=== PATIENT | female | born 1950 | race Caucasian/White ===

== ENCOUNTER 2020-12-11 12:14 | Observation (INO) | payer OTHER, MEDICAID, SELFPAY ==
[~2020-12-11] VITALS: Ht 160 cm; Wt 97.1 kg
[2020-12-11 12:14] VITALS: BP 128/62
[~2020-12-11 12:14] MED LIST: ACET-9528 PO; ACET-9536 PO; ALBU-118 IH; AMIO200T PO; ATI.5 PO; DIGO0.122 PO; DILT-135 PO; DOXE50CA10 PO; DULO60EC PO; HYDR-1096 PO; LOSA100T51 PO; Metoprolol Tartrate PO; RIVA20TA PO; TEMA30CA23 PO
--- NOTE | 2020-12-11 12:14 | NUR ---
PATIENT TRANSPORTED TO BED 3 VIA GURNEY.
--- NOTE | 2020-12-11 12:15 | NUR ---
70 YO FEMALE BIBA FROM HOME C/O SOB, HEADACHE, LIGHT HEADED, AND GENERAL WEAKNESS THAT STARTED THIS AM. PER MEDICS; O2 WAS 96% ON ROOM AIR UPON ARRIVAL, THEN PATIENT DESATED TO 90%, PLACED ON O2 2L/NC BY MEDICS. PATIENT STATES SOB IS WITH TALKING AND EXERTION. UPON ARRIVAL PATIENT DENIES SOB, O2 TAKEN OFF AND PATIENT O2 SAT 94%. LUNG SOUNDS CLEAR THROUGHOUT, DENIES COUGH, DENIES, FEVER, CHILLS, NVD. PATIENT HAS EDEMA TO MELISSA LOWER EXT/+1, NON PITTING. SKIN IS DRY AND INTACT. PATIENT C/O 8/10 HIP PAIN, STATES CHRONIC PAIN. PATIENT IS AOX4, PLACED IN GOWN AND CONNECTED TO MONITOR FOR CONTINUED OBSERVATION. PMH: COPD, HTN, DIASTOLIC HEART FAILURE, AFIBB, PTSD, MAJOR DEPRESSIVE D/O, HEART ATTACH AND STROKE IN 2012. ALLERGIES: AMOXICILLIN, LATEX, AMIODORONE, LEVAQUIN, ENALIPRIL, ALTACE.
--- NOTE | 2020-12-11 12:25 | NUR ---
DR LUCIANO AT BEDSIDE EVALUATING PT
--- NOTE | 2020-12-11 12:38 | NUR ---
EKD DONE AT BEDSIDE BY EMT.
--- NOTE | 2020-12-11 12:41 | NUR ---
UPHOLSTERY DEPARTMENT SUPERVISOR AT BEDSIDE COLLECTING BLOOD SAMPLES.
--- NOTE | 2020-12-11 12:42 | NUR ---
TYREE SAMPLE COLLECTED AND GIVEN TO CHILD CARE ATTENDANT.
[2020-12-11 12:50] LABS: BASOPHILS % (AUTO) 0.5 % (0.0-2.0); EOSINOPHILS # (AUTO) 0.1 K/uL (0-0.4); EOSINOPHILS % (AUTO) 1.9 % (0.0-4.0); HEMATOCRIT 36.2 % (36-48); HEMOGLOBIN 12.1 g/dL (12.0-16.0); LYMPHOCYTES # (AUTO) 1.2 K/uL (2.5-16.5); LYMPHOCYTES % (AUTO) 17.9 % (20.5-51.1); MEAN CORPUSCULAR HEMOGLOBIN 32 pg (27-31); MEAN CORPUSCULAR HGB CONC 33 g/dL (33-37); MEAN CORPUSCULAR VOLUME 95.7 fL (80-94); MONOCYTES # (AUTO) 0.6 K/uL (0.8-1.0); MONOCYTES % (AUTO) 8.3 % (1.7-9.3); NEUTROPHILS # (AUTO) 4.8 K/uL (1.8-7.7); NEUTROPHILS % (AUTO) 71.4 % (42.2-75.2); PLATELET COUNT (AUTO) 256 K/uL (140-450); RED BLOOD CELL COUNT(AUTO) 3.78 MIL/uL (4.20-5.40); RED CELL DISTRIBUTION WIDTH 14.4 % (11.6-13.7); WHITE BLOOD COUNT (AUTO) 6.8 K/uL (4.8-10.8)
[2020-12-11 13:04] LABS: ALBUMIN 3.6 g/dL (3.4-5.0); ANION GAP 10.6 (8-16); CARBON DIOXIDE 29.6 mmol/L (21-32); CREATININE 1.1 mg/dL (0.6-1.3); POTASSIUM 5.2 mmol/L (3.5-5.1); TOTAL BILIRUBIN 0.3 mg/dL (0.0-1.0)
[2020-12-11] MEDS ORDERED: ALBUTEROL 0.083% 2.5 MG/3 ML NEBU INH ONE (13:25)
--- NOTE | 2020-12-11 13:33 | NUR ---
RT AT BEDSIDE FOR BREATHING TREATMENT
--- NOTE | 2020-12-11 13:33 | NUR ---
Emely gambino in [facility] - 12/11/20 at 1333 by [email or web address] RAD AT BEDSIDE
--- NOTE | 2020-12-11 13:50 | NUR ---
PATIENT AMBULATED TO BATHROOM WITH WALKER ASSIST AND STAFF.
--- NOTE | 2020-12-11 14:00 | NUR ---
URINE SAMPLE COLLECTED AND WALKED TO LAB.
--- NOTE | 2020-12-11 14:15 | NUR ---
CONSENT SIGNED AND IV ESTABLISHED FOR CT ANGIO OF THE CHEST.
[2020-12-11 14:28] LABS: APPEARANCE,URINE CLEAR (CLEAR); BILIRUBIN,URINE NEGATIVE (NEGATIVE); BLOOD, URINE NEGATIVE (NEGATIVE); COLOR,URINE YELLOW (YELLOW); LEUKOCYTE ESTERASE ,URINE TRACE (NEGATIVE); NITRITE, URINE NEGATIVE (NEGATIVE); UGLUCOSE NEGATIVE (NEGATIVE)
--- NOTE | 2020-12-11 14:45 | NUR ---
PATIENT RETURNED FROM CT VIA [facility].
--- NOTE | 2020-12-11 15:59 | NUR ---
PATIENT RESTING IN BED, VSS.
[2020-12-11] MEDS ORDERED: PRED50TA3 PO (16:10)
[2020-12-11] MEDS ORDERED: ALBUTEROL HFA MDI 90 MCG/ACTUATION 8 GM INH ONE (16:55)
[2020-12-11] MEDS ORDERED: HYDROCORTISONE NA SUCC 100 MG/2 ML VIAL IV ONE (16:55)
[2020-12-11] MEDS ORDERED: IPRATROPIUM 0.02% 0.5 MG/2.5 ML NEBU INH ONE (16:55)
--- NOTE | 2020-12-11 17:11 | NUR ---
PATIENT AMBULATED TO BATHROOM WITH WALKER, STAFF ASSIST.
--- NOTE | 2020-12-11 18:24 | NUR ---
MEALTRAY GIVEN TO PATIENT AT THIS TIME.
[2020-12-11] MEDS ORDERED: SPIR25TA20 PO (19:05)
[2020-12-11] MEDS ORDERED: GABA800T6 PO (19:07)
[2020-12-11] MEDS ORDERED: HYDROcodone/APAP 10/325 MG 1 TAB TAB PO ONE (19:10)
--- NOTE | 2020-12-11 19:24 | NUR ---
REPORT AND CONTINUATION OF CARE GIVEN TO ROSAMARIA RUTHERFORD.
--- NOTE | 2020-12-11 19:25 | NUR ---
RECIVED REPORT FROM JOSEPH RN, TRANSFER OF CARE. PATIENT ON DRY JANITOR. VSS, PATIENT CURRENTLY DENIES SOB. PATIENT ON RA AT THIS TIME. PATIENT NOTED WITH EVEN AND UNLABORED RESPIRATIONS. DENIES CP AT THIS TIME. WALKER AT BEDSIDE.
[2020-12-11] MEDS ORDERED: ACETAMINOPHEN 325 MG TAB PO PRN (20:20)
[2020-12-11] MEDS ORDERED: ZOLPIDEM 5 MG TAB PO PRN (20:20)
[2020-12-11] MEDS ORDERED: POTASSIUM CHLORIDE 10 MEQ TABER PO PRN (20:20)
[2020-12-11] MEDS ORDERED: KCL 20 MEQ/WATER INJ PREMIX 200 ML IV PRN (20:20)
[2020-12-11] MEDS ORDERED: ALBUTEROL SULFATE/IPRATROPIU 3 ML SOL IH PRN (20:20)
[2020-12-11] MEDS ORDERED: MAGNESIUM OXIDE 400 MG TAB PO PRN (20:20)
[2020-12-11] MEDS ORDERED: MAG SULF 2000 MG/WATER PREMIX 50 ML IV PRN (20:20)
[2020-12-11] MEDS ORDERED: ONDANSETRON 4 MG/2 ML VIAL IVP PRN (20:20)
[2020-12-11] MEDS ORDERED: LORazepam 1 MG TAB PO PRN (20:20)
--- NOTE | 2020-12-11 20:43 | NUR ---
Patient assisted to restroom via w/c. patient repostiioned for comfort measures. Patient placed on customer care representative upon return to bed. VSS.
--- NOTE | 2020-12-11 22:56 | NUR ---
PAGED TO REQUEST FOR PATINENT MEDICAN FOR INSOMINA. PATIENT REFUSED AMBIEN AND ATIVAN PRN MEDICATION. PATIENT STATES TAKES TEMAZEPAM 30MG DAILY HS AND PREFERES TO TAKE THAT MEDICATION.
[2020-12-11] MEDS ORDERED: TEMAZEPAM 15 MG CAP PO PRN (23:05)
--- NOTE | 2020-12-12 00:12 | NUR ---
NADR TO PRN RESTORIL. PATIENT REMAINS ON CARDAC MONITOR. VSS. PATIENT NOTED WITH VISIBLE RISE AND FALL OF CHEST. PATIENT RESTING I BED WITH EYES CLOSED. PATIENT BED IS LOCKED AND IN LOWEST POSITION.
[2020-12-12] MEDS: methylPREDNISolone SS 40 MG/ML VIAL IVP SCH ×3 (00:43→12:36)
[2020-12-12] MEDS: HYDROcodone/APAP 5/325 MG 1 TAB TAB PO PRN ×2 (02:29→09:58)
--- NOTE | 2020-12-12 02:36 | NUR ---
PATIENT GIVEN BLANKET FOR COMFORT MEASURES. PATIENT REMAINS ON PRECISION GRINDER. VSS. PATIENT BED IS LOCKED AND IN LOWEST POSITION.
--- NOTE | 2020-12-12 03:25 | NUR ---
Patient will be admitted to care of . Admited to [facility]. Will go to room 104A. Belongings list completed. Report to ASAEL BLANK.
--- NOTE | 2020-12-12 05:25 | NUR ---
THE PATEINT WAS ADMITTED FROM er for SOB , , SHE IS ALERT AND ORIENTED X4SHE HAS HX OF CVA,AK,COPD,PTSD,ARTHRITIS, HER VITALAS ARE STABLE, O2 STAT IS 95$, SHE CLAMS SHE DID NOT TAKE HER NIGHT BP MEDS , SHE HAS SURGICAL WOUND IN HER BACK ,. AND PAIN ON AND OFF SHE NEED HIP REPLACEMENT.DRESSING WAS CHANGED TWICE AND COMFORT AND SAFETY MEASURES ARE PROVIDED.
--- NOTE | 2020-12-12 07:08 | NUR ---
PATIENT HAS BEEN SCREENED AND CATEGORIZED MODERATE NUTRITION RISK. PATIENT WILL BE SEEN WITHIN 3-5 DAYS OF ADMISSION. 12/15/20-12/17/20 NERY BANSAL MS, RDN
--- NOTE | 2020-12-12 07:10 | NUR ---
RECEIVED BEDSIDE REPORT FROM GENERAL MAINTENANCE ENGINEER NURSE FOR CONTINUITY OF CARE. PT IS AWAKE AND ALERT, A&OX4. ON RA WITH BREATHING UNLABORED. PT IS AMBULATORY WITH ASSISTANCE. CONTINENT OF THE BOWEL AND BLADDER. SKIN IS WARM AND DRY. IV IS IN THE LEFT AC 20 GAUGE SALINE LOCKED. PT IS STABLE AT THIS TIME. PLAN OF CARE DISCUSSED.
[2020-12-12 07:20] LABS: BASOPHILS % (AUTO) 0.2 % (0.0-2.0); HEMOGLOBIN 14.1 g/dL (12.0-16.0); LYMPHOCYTES # (AUTO) 0.4 K/uL (2.5-16.5); LYMPHOCYTES % (AUTO) 8.1 % (20.5-51.1); MEAN CORPUSCULAR HEMOGLOBIN 32 pg (27-31); MEAN CORPUSCULAR HGB CONC 34 g/dL (33-37); MEAN CORPUSCULAR VOLUME 93.6 fL (80-94); MONOCYTES % (AUTO) 0.4 % (1.7-9.3); NEUTROPHILS # (AUTO) 4.9 K/uL (1.8-7.7); NEUTROPHILS % (AUTO) 91.3 % (42.2-75.2); PLATELET COUNT (AUTO) 215 K/uL (140-450); RED BLOOD CELL COUNT(AUTO) 4.38 MIL/uL (4.20-5.40); RED CELL DISTRIBUTION WIDTH 14.1 % (11.6-13.7); WHITE BLOOD COUNT (AUTO) 5.4 K/uL (4.8-10.8)
[2020-12-12 07:57] LABS: ANION GAP 15.1 (8-16); CARBON DIOXIDE 26.6 mmol/L (21-32); CREATININE 0.9 mg/dL (0.6-1.3); POTASSIUM 3.7 mmol/L (3.5-5.1)
[2020-12-12 08:00] VITALS: BP 158/91
--- NOTE | 2020-12-12 08:06 | NUR ---
PREDNISONE WAS NOT GIVEN BY ME IT WAS PAST DUE. HAND ROUTER OPERATOR NURSE STATED HE ADMINISTERED IT, BUT UNSURE IF THE PT RECEIVED IT IT WAS NOT SCANNED.
[2020-12-12] MEDS ORDERED: ENOXAPARIN 40 MG/0.4 ML SYR SUBQ SCH (09:00)
--- NOTE | 2020-12-12 09:30 | NUR ---
PT VOIDED IN DIAPER AND WAS CHANGED. LINENS WERE CHANGED WELL. PT TOLERATED MOVEMENT WELL. WILL CONTINUE TO MONITOR.
--- NOTE | 2020-12-12 09:58 | NUR ---
PT STATES SHE HAS PAIN AT A SCALE OF 6/10 IN THE RIGHT HIP. PT STATES THE PAIN ACHING. NORCO WAS GIVEN FOR PAIN.
--- NOTE | 2020-12-12 11:00 | NUR ---
ROUNDED ON PT. SHE IS STABLE AT THIS TIME. ON RA WITH NO RESPIRATORY DISTRESS NOTED. BREATHING IS UNLABORED. PT DENIES PAIN. WILL CONTINUE TO MONITOR.
--- NOTE | 2020-12-12 11:40 | NUR ---
RESIDENTIAL FINISH CARPENTER, KARISSA, CALLED TO BEDSIDE BY PT. PT IS STATING SHE WANTS TO GO HOME. SHE SAYS SHE NORMALLY HAS DIAPERS AT HOME AND DOES NOT LIKE WETTING THE BED. PT WAS SOILED AND DIAPER WAS CHANGED AFTER KARISSA LEFT THE ROOM. INFORMED PT ABOUT THE OPTION TO SIGN AMA BUT SHE CHANGED HER MIND AND NOW WANTS TO WAIT FOR THE DOCTOR TO SEE HER. PT IS STABLE. DOES NOT NEED ANYTHING ELSE AT THIS TIME.
--- NOTE | 2020-12-12 13:30 | NUR ---
PT WAS ASSISTED TO THE BEDSIDE COMMODE. PT HAD STEADY GAIT. NO DISTRESS NOTED. PT HAD A BM THEN WAS ASSISTED BACK TO BED.
[2020-12-12] MEDS ORDERED: PRED20TA5 PO (14:46)
[2020-12-12 14:50] VITALS: BP 155/90
--- NOTE | 2020-12-12 15:00 | NUR ---
PT SPOKE TO DR. SERRA AND IS BEING DISCHARGED. WILL START WORKING ON DISCHARGE PAPERWORK. PT IS AT BEDSIDE CHANGING INTO OWN CLOTHING. SHE IS STABLE.
--- NOTE | 2020-12-12 16:00 | NUR ---
ID BAND WAS REMOVED. IV WAS REMOVED AND BLEEDING WAS CONTROLLED. DISCHARGE INSTRUCTIONS WERE PROVIDED AND PT VERBALIZED UNDERSTANDING. PT SIGNED ALL PAPERWORK. VS ARE STABLE AT THIS TIME. RIGGING SLINGER AT BEDSIDE TO PEDIGREE TRACER PT. SHE WAS TAKEN TO CAR VIA WHEELCHAIR AND AMBULATED INTO THE CAR. PT IS NOW DISCHARGED FROM THE HOSPITAL.
== END 2020-12-12 16:00 | disposition home or self-care (01) ==
LOC: MED 12:14 → MMU 20:24 → INTOOBSV 20:24 → MTU 12-12 03:07
PROVIDERS: ADMIT Hospitalist; ATTEND Hospitalist
DX: R06.02 Shortness of breath (principal); I11.0 Hypertensive heart disease with heart failure; I50.9 Heart failure, unspecified; I48.20 Chronic atrial fibrillation, unspecified; F32.9 Major depressive disorder, single episode, unspecified; E66.9 Obesity, unspecified; N39.3 Stress incontinence (female) (male); Z79.01 Long term (current) use of anticoagulants; Z79.899 Other long term (current) drug therapy; Z20.822 Contact with and (suspected) exposure to COVID-19
CPT/HCPCS: 36415; 71045; 71275; 80048; 80053; 81003; 83880; 84484; 85025; 87426; 93005; 96374; 96375; 96376; 99285; G0378; J1650; J1720; J2920; J3535; J7613; J7644; Q0092; Q9967; 96372

== ENCOUNTER 2023-12-08 10:02 | Day surgery (SDC) | payer MEDICARE, OTHER ==
[~2023-12-08] VITALS: Ht 160 cm; Wt 88.9 kg
[~2023-12-08 10:02] MED LIST changes: -DULO60EC PO; +DULO60EC1 PO; +GABA800T6 PO; -LOSA100T51 PO; +LOSA100T52 PO; +PRED20TA5 PO; +SPIR25TA20 PO
[2023-12-08] MEDS ORDERED: fentaNYL citrate 0.05 MG/ML VIAL ONE (11:09)
[2023-12-08] MEDS: fentaNYL citrate 0.05 MG/ML VIAL IVP ONE (11:39)
[2023-12-08] MEDS: LIDOCAINE 2% 100 MG/5 ML UJET TP ONE (11:44)
== END 2023-12-08 13:43 | disposition home or self-care (01) ==
LOC: MDS 10:02 → MMU 10:03 → MDS 13:43
PROVIDERS: ATTEND Internal Medicine Gastroenterology
DX: R19.7 Diarrhea, unspecified (principal); K63.5 Polyp of colon; K62.6 Ulcer of anus and rectum; K57.30 Diverticulosis of large intestine without perforation or abscess without bleeding; I10 Essential (primary) hypertension; F32.A Depression, unspecified; Z88.1 Allergy status to other antibiotic agents; Z91.040 Latex allergy status; Z88.8 Allergy status to other drugs, medicaments and biological substances; Z96.649 Presence of unspecified artificial hip joint; Z90.710 Acquired absence of both cervix and uterus; Z79.899 Other long term (current) drug therapy
CPT/HCPCS: 45385; 88305; J3010